=== PATIENT | female | born 1975 | race Caucasian/White ===

== ENCOUNTER 2017-05-20 12:18 | Emergency (ER) | payer OTHER ==
[~2017-05-20] VITALS: Wt 76.0 kg
[2017-05-20] MEDS ORDERED: ACETAMINOPHEN/CODEINE #3 TAB PO ONE (13:00)
--- NOTE | 2017-05-20 13:04 | ERD ---
ER Documentation Chief Complaint Date/Time DATE: 05/20/17 TIME: 13:01 Chief Complaint left leg/calf pain since yesterday HPI 41-year-old female with a history of diabetes complains of left-sided calf pain and swelling that started 2 days ago. Patient describes as a pulling pain, worse when she walks on it, and better with elevation of the leg. She has diffuse Swelling followed by tenderness. She states that she has never had any DVTs before, she is a non-smoker, denies recent immobilization, malignancies. She did have a recent car ride that was long, she returned from [place] 2 weeks ago. Patient also reports that she received a double shot 2 months ago, IUD removal was done at that time. She does not have any chest pain, shortness of breath, dizziness or syncope. Denies fevers or chills. Denies trauma to the leg. ROS All systems reviewed and are negative except as per history of present illness. Allergies Allergies: Coded Allergies: No Known Allergy (Unverified , 05/20/17) PMhx/Soc History of Surgery: Yes () Hx Alcohol Use: Yes Hx Substance Use: No Hx Tobacco Use: No Smoking Status: Never smoker Physical Exam Vitals Vital Signs Date Time Temp Pulse Resp B/P Pulse Ox O2 Delivery O2 Flow Rate FiO2 05/20/17 12:26 98.2 60 18 140/78 99 Physical Exam General: Well-developed, well-nourished. The patient appears in no acute distress. HEENT: Head is normocephalic, atraumatic. No scleral icterus. Neck: Supple. Nontender. Lungs: Clear to auscultation. Normal air movement. Heart: Regular rate and rhythm. S1 and S2 are normal. No murmurs, gallops, or rubs. Abdomen: Soft, nontender, nondistended. Bowel sounds are normoactive. Extremities: Swelling and calf tenderness on the left lower extremity. Dorsalis pedis pulses 2+ bilaterally. There is no cyanosis. Extremities are warm to touch. Neurologic: Alert and oriented 3. No focal deficits. Skin: Normal turgor. No rash or lesions. Results 24 hrs Current Medications Medications (Trade) Dose Ordered Sig/Luciana Route PRN Reason Start Time Stop Time Status Last Admin Dose Admin Acetaminophen/ Codeine Phosphate (Tylenol No.3) 1 tab ONCE ONCE PO 05/20/17 13:00 05/20/17 13:01 DC 05/20/17 13:21 Apixaban (Eliquis) 10 mg ONCE ONCE PO 05/20/17 14:00 05/20/17 14:01 Procedures/MDM ED course: Patient was offered pain medication, she stated that Tylenol 3 usually helps her , therefore this was ordered. Labs were ordered and Doppler ultrasound study was ordered for the left lower extremity. Ultrasound occlusive DVT in the left lower extremity, from the common femoral. This was discussed with my attending physician Dr. Rosas who agrees that the patient will further benefit from hospitalization. Medical decision making: This is a 41-year-old female comes in with left-sided leg pain, for 2 days. She states that she did have a long car drive to weeks ago, she also reports having received a double shot, as IUD was removed about 2 months ago. At this time she does have significant calf swelling and calf tenderness, ultrasound shows a complete occlusive DVT from the common femoral down. Patient will further benefit from hospitalization, and anticoagulation therapy. Departure Diagnosis: Primary Impression: Left femoral vein DVT Condition: Stable BLESSING TAMAYO PA-C May 20, 2017 13:04
[2017-05-20 13:54] LABS: INR 0.91; PARTIAL THROMBOPLASTIN TIME 23.3 Sec (25.0-35.0); PROTIME 12.3 Sec (12.2-14.2)
[2017-05-20] MEDS ORDERED: APIXABAN 5 MG TABLET PO ONE (14:00)
[2017-05-20 14:10] LABS: ADD SCAN DIFF NO
--- NOTE | 2017-05-20 14:18 | RADRPT ---
PROCEDURE: US Lower extremity Venous. CLINICAL INDICATION: Left leg edema TECHNIQUE: Multiple sonographic images of the left lower extremity deep venous system was obtained utilizing grayscale, color-flow, compressive sonography and doppler imaging with augmentation. The images were reviewed on a PACS workstation. COMPARISON: None. FINDINGS: There is no compressibility or flow within the left common femoral, femoral, posterior tibial, peron eal and popliteal veins. RPTAT: AA IMPRESSION: Extensive left leg DVT. Report was given to nurse practitioner Gaby by the technologist at the time of examination. .Beau Valencia MD, MD Date Time Electronically viewed and signed by .Beau Valencia MD, on 05/20/2017 14:18 .S/
[2017-05-20 14:21] LABS: BASOPHILS % 0.4 % (0.0-2.0); EOSINOPHILS # 0.1 10^3/ul (0.0-0.5); EOSINOPHILS % 1.1 % (0.0-7.0); HEMATOCRIT 39.8 % (37.0-47.0); HEMOGLOBIN 13.3 g/dl (12.0-16.0); LYMPHOCYTES # 2.1 10^3/ul (0.8-2.9); LYMPHOCYTES % 20.5 % (15.0-51.0); MEAN CORPUSCULAR HEMOGLOBIN 26.8 pg (29.0-33.0); MEAN CORPUSCULAR HGB CONC 33.4 g/dl (32.0-37.0); MEAN CORPUSCULAR VOLUME 80.1 fl (82.0-101.0); MONOCYTE # 0.6 10^3/ul (0.3-0.9); MONOCYTES % 5.4 % (0.0-11.0); NEUTROPHIL # 7.4 10^3/ul (1.6-7.5); NEUTROPHILS % 72.2 % (39.0-77.0); PLATELET COUNT 231 10^3/UL (140-415); RED BLOOD COUNT 4.97 10^6/ul (4.20-5.40); RED CELL DISTRIBUTION WIDTH 12.6 % (11.5-14.5); WHITE BLOOD COUNT 10.3 10^3/ul (4.8-10.8)
[2017-05-20 14:29] LABS: CALCIUM 9.4 mg/dl (8.4-10.2); CREATININE 0.56 mg/dl (0.44-1.00); POTASSIUM 4.3 mmol/L (3.5-5.1)
[2017-05-20] MEDS ORDERED: APIX5TAB PO (15:00)
[2017-05-20] MEDS ORDERED: HYDR-902 PO (15:13)
[2017-05-20] MEDS ORDERED: ACET1TAB40 PO (15:15)
[2017-05-20] MEDS ORDERED: DOCU-144 PO (15:16)
[2017-05-20 15:28] VITALS: BP 124/79; PULSE 61; RESP 16; TEMP 99
== END 2017-05-20 15:30 | disposition home or self-care (01) ==
LOC: FTE 12:18
DX: I82.412 Acute embolism and thrombosis of left femoral vein (principal); E11.9 Type 2 diabetes mellitus without complications
CPT/HCPCS: 80048; 85025; 85610; 85730; 93971; Z7610

== ENCOUNTER 2017-06-02 15:23 | Inpatient (IN) | payer OTHER ==
[~2017-06-02] VITALS: Ht 160 cm; Wt 80.0 kg
[~2017-06-02 15:23] MED LIST: ACET1TAB40 PO; APIX5TAB PO; DOCU-144 PO; HYDR-902 PO
[2017-06-02 17:33] LABS: ADD SCAN DIFF NO
[2017-06-02 17:37] LABS: BASOPHIL # 0.1 10^3/ul (0.0-0.1); BASOPHILS % 0.5 % (0.0-2.0); EOSINOPHILS # 0.1 10^3/ul (0.0-0.5); EOSINOPHILS % 1.4 % (0.0-7.0); HEMATOCRIT 39.6 % (37.0-47.0); HEMOGLOBIN 13.3 g/dl (12.0-16.0); LYMPHOCYTES # 2.9 10^3/ul (0.8-2.9); LYMPHOCYTES % 31.3 % (15.0-51.0); MEAN CORPUSCULAR HGB CONC 33.6 g/dl (32.0-37.0); MEAN CORPUSCULAR VOLUME 80.5 fl (82.0-101.0); MEAN PLATELET VOLUME 10.3 fl (7.4-10.4); MONOCYTE # 0.5 10^3/ul (0.3-0.9); MONOCYTES % 5.1 % (0.0-11.0); NEUTROPHIL # 5.7 10^3/ul (1.6-7.5); NEUTROPHILS % 61.5 % (39.0-77.0); PLATELET COUNT 408 10^3/UL (140-415); RED BLOOD COUNT 4.92 10^6/ul (4.20-5.40); WHITE BLOOD COUNT 9.2 10^3/ul (4.8-10.8)
[2017-06-02 17:42] LABS: URINE BLOOD (Dip) POC Trace-intact (NEGATIVE)
[2017-06-02] MEDS ORDERED: HYDROCODONE/APAP (5/325) TAB PO ONE (18:00)
[2017-06-02 18:08] LABS: ALANINE AMINOTRANSFERASE 23 IU/L (13-69); ALBUMIN 3.8 g/dl (3.3-4.9); ALBUMIN/GLOBULIN RATIO 1.05; ALKALINE PHOSPHATASE 78 IU/L (42-121); ANION GAP 22 (8-16); ASPARTATE AMINO TRANSFERASE 17 IU/L (15-46); BLOOD UREA NITROGEN 22 mg/dl (7-20); CALCIUM 9.1 mg/dl (8.4-10.2); CARBON DIOXIDE 20 mmol/L (21-31); CHLORIDE 99 mmol/L (97-110); CREATININE 0.74 mg/dl (0.44-1.00); GLUCOSE 329 mg/dl (70-220); POTASSIUM 4.2 mmol/L (3.5-5.1); SODIUM 137 mmol/L (135-144); TOTAL PROTEIN 7.4 g/dl (6.1-8.1)
[2017-06-02 18:23] LABS: TROPONIN-I < 0.012 ng/ml (0.00-0.12)
[2017-06-02 18:30] LABS: INR 1.16; PARTIAL THROMBOPLASTIN TIME 28.2 Sec (25.0-35.0); PROTIME 14.9 Sec (12.2-14.2); PT RATIO 1.2
[2017-06-02] MEDS ORDERED: SOD CHLORIDE 0.9% 1,000 ML IV ONE (18:30)
[2017-06-02] MEDS ORDERED: IOHEXOL 100 ML ONE (18:51)
[2017-06-02] MEDS ORDERED: SOD CHLORIDE 0.9% 100 ML ONE (18:51)
[2017-06-02] MEDS ORDERED: IOHEXOL 350MG/ML 50 ML BTL ONE (18:51)
[2017-06-02 19:27] LABS: MODE ROOM AIR; MetHgb Venous 1.4 %; Sample Type Blood venous; Venous COHb 0.3 %; Venous Fraction OxyHgb 36.7 %
--- NOTE | 2017-06-02 20:28 | RADRPT ---
PROCEDURE: CT angiogram chest. CLINICAL INDICATION: Shortness of breath. TECHNIQUE: CT angiogram of the chest was performed utilizing axial images with reconstructions in sagittal and coronal planes following the intravenous administration of 100 cc Omnipaque 350 contras t. The administered radiation dose is CTDI 14 mGy, DLP 502 mGy-cm. COMPARISON: No pertinent prior examinations are submitted for comparison. FINDINGS: Pulmonary angiogram: The pulmonary arteries are adequately opacified to the level of the segmental pulmonary artery branches. There is minimal respiratory motion artifact. All there is a small fill ing defects within the left distal mainstem pulmonary artery extending into the left lower lobe pulm onary artery branches. No other definite pulmonary filling defects are seen. Aortogram: There is no evidence of aortic dissection or aneurysm. Major branches of the aorta are patent. Chest: The lungs are clear. No pleural or pericardial effusions are seen. The tracheobronchial tree is un remarkable. The heart is normal in size. No pericardial effusion is seen. There is no evidence of mediastinal or hilar adenopathy. Visualized Upper abdomen: Unremarkable. Osseous structures: Unremarkable. IMPRESSION: Positive for small left lower lobe pulmonary emboli. RPTAT: HIKT .Mando Montilla MD, MD Date Time Electronically viewed and signed by .Mando Montilla MD, on 06/02/2017 20:28 .T/
[2017-06-02] MEDS ORDERED: INSULIN ASPART [NOVOLOG] 3 ML PEN SC ONE (20:30)
--- NOTE | 2017-06-02 20:50 | ERD ---
ER Documentation Chief Complaint Date/Time DATE: 06/02/17 TIME: 20:40 Chief Complaint LEFT LEG PAIN AND SOB. ON ELEQUIS HPI Patient is a 41-year-old female with a history of left lower extremity DVT and new onset diabetes who presents the emergency department for concerns of ongoing left leg pain and shortness of breath. Patient is currently taking Eliquis. Patient was diagnosed with a Extensive left leg DVT on 03-22-17. Patient states that she has been having ongoing left leg pain since that time. Patient also states today she developed chest pain around 11 AM. Patient states the pain is localized to her left chest. She describes the pain to be pressure-like. Patient denies any radiation of the pain. Patient reports shortness of breath at rest. Patient does report tactile fevers however she denies any diaphoresis, nausea, vomiting or loss consciousness. She did recently travel to [place] by car. Patient denies any unilateral leg swelling, current OCPs, trauma to her leg. Patient states she last received a Depo- Provera shot to months ago. ROS All systems reviewed and are negative except as per history of present illness. Medications Home Meds Active Scripts Docusate Sodium* (Colace*) 100 Mg Capsule, 100 MG PO TID, #30 CAP Prov:PETAR BOWEN MD 05/20/17 Acetaminophen with Codeine (Acetaminophen-Cod #3 Tablet) 1 Each Tablet, 1 TAB PO Q6H Y for PAIN, #7 TAB Prov:PETAR BOWEN MD 05/20/17 Hydrocodone/Acetaminophen ([place] 10-325 Tablet) 1 Each Tablet, 1 TAB PO Q6H Y for PAIN, #7 TAB Prov:PETAR BOWEN MD 05/20/17 Apixaban* (Eliquis*) 5 Mg Tablet, 10 MG PO BID, #14 TAB Prov:PETAR BOWEN MD 05/20/17 Allergies Allergies: Coded Allergies: No Known Allergy (Unverified , 05/20/17) PMhx/Soc Medical and Surgical Hx: pt denies Medical Hx, pt denies Surgical Hx History of Surgery: Yes () Hx Alcohol Use: Yes Hx Substance Use: No Hx Tobacco Use: No FmHx Family History: No diabetes Physical Exam Vitals Vital Signs Date Time Temp Pulse Resp B/P Pulse Ox O2 Delivery O2 Flow Rate FiO2 06/02/17 15:28 99.4 98 20 131/83 100 Physical Exam GENERAL: Well-developed, well-nourished female. Appears in no acute distress. Speaking in full sentences HEAD: Normocephalic, atraumatic. EYES: Pupils are equally reactive bilaterally. EOMs grossly intact. No conjunctival erythema. ENT: Moist mucous membranes. No uvula deviation. No kissing tonsils. NECK: Supple. No meningismus. Normal range of motion of the neck. LUNG: Clear to auscultation bilaterally. No rhonchi, wheezing, rales or coarse breath sounds. HEART: Regular rate and rhythm. No murmurs, rubs or gallops. ABDOMEN: No scars, ecchymosis or rashes noted. Soft, nontender, and nondistended. Positive bowel sounds in all four quadrants. No rebound tenderness , no guarding. (-) McBurney's point tenderness. No CVA tenderness. BACK: No midline tenderness. EXTREMITIES: Equal pulses bilaterally. No peripheral clubbing, cyanosis or edema. No unilateral leg swelling. NEUROLOGIC: Alert and oriented. Moving all four extremities without any difficulty. Normal speech. Steady gait. SKIN: Normal color. Warm and dry. No rashes or lesions. LEFT LE: No deformity, erythema, ecchymosis or swelling. Skin intact. Normal range of motion of the knee and ankle. Tender to palpation of the calf. Sensation intact to light touch. Neurovascularly intact. (Able to plantarflex, dorsiflex, meg foot, invert foot, raise big toe.) 2+ DP and DT pulses. Result Diagram: 06/02/17 1730 06/02/17 1730 Results 24 hrs Laboratory Tests Test 06/02/17 17:30 06/02/17 17:47 06/02/17 18:18 06/02/17 20:32 White Blood Count 9.210^3/ul Red Blood Count 4.9210^6/ul Hemoglobin 13.3g/dl Hematocrit 39.6% Mean Corpuscular Volume 80.5fl Mean Corpuscular Hemoglobin 27.0pg Mean Corpuscular Hemoglobin Concent 33.6g/dl Red Cell Distribution Width 13.0% Platelet Count 28580^3/UL Mean Platelet Volume 10.3fl Neutrophils % 61.5% Lymphocytes % 31.3% Monocytes % 5.1% Eosinophils % 1.4% Basophils % 0.5% Nucleated Red Blood Cells % 0.0/100WBC Neutrophils # 5.710^3/ul Lymphocytes # 2.910^3/ul Monocytes # 0.510^3/ul Eosinophils # 0.110^3/ul Basophils # 0.110^3/ul Nucleated Red Blood Cells # 0.010^3/ul Prothrombin Time 14.9Sec Prothrombin Time Ratio 1.2 INR International Normalized Ratio 1.16 Activated Partial Thromboplast Time 28.2Sec Sodium Level 137mmol/L Potassium Level 4.2mmol/L Chloride Level 99mmol/L Carbon Dioxide Level 20mmol/L Anion Gap 22 Blood Urea Nitrogen 22mg/dl Creatinine 0.74mg/dl Glucose Level 329mg/dl Calcium Level 9.1mg/dl Total Bilirubin 0.0mg/dl Direct Bilirubin 0.00mg/dl Indirect Bilirubin 0.0mg/dl Aspartate Amino Transf (AST/SGOT) 17IU/L Alanine Aminotransferase (ALT/SGPT) 23IU/L Alkaline Phosphatase 78IU/L Troponin I < 0.012ng/ml Total Protein 7.4g/dl Albumin 3.8g/dl Globulin 3.60g/dl Albumin/Globulin Ratio 1.05 Bedside Urine pH (LAB) 5.0 Bedside Urine Protein (LAB) Negative Bedside Urine Glucose (UA) 0.50% Bedside Urine Ketones (LAB) Negative Bedside Urine Blood Trace-intact Bedside Urine Nitrite (LAB) Negative Bedside Urine Leukocyte Esterase (L Negative Blood Gas Specimen Source Blood venous Arterial Blood Date Drawn 06/02/2017 7:10:58 PM Arterial Blood Gas Puncture Site VENOUS LINE Gómez Test N/A Venous Blood pH 7.380 Venous Blood pCO2 (Temp Corrected) 37.0mmHG Venous Blood pO2 (Temp Corrected) 22.1mmHG Venous Blood HCO3 21.4mmol/L Venous Blood Oxygen Saturation 37.3mmHG Venous Blood Base Excess -3.2mmol/L Venous Blood Total Hemoglobin 14.0g/dl Venous Blood Oxyhemoglobin 36.7% Venous Blood Methemoglobin 1.4% Carboxyhemoglobin 0.3% Blood Gas Temperature 37.0C Blood Gas Modality ROOM AIR FiO2 21.0% Blood Gas Notified Whom UP Blood Gas Notified Time 06/02/2017 7:26:53 PM Bedside Glucose 285mg/dL Current Medications Medications (Trade) Dose Ordered Sig/Luciana Route PRN Reason Start Time Stop Time Status Last Admin Dose Admin Acetaminophen/ Hydrocodone Bitart 1 tab 1 tab ONCE ONCE PO 06/02/17 18:00 06/02/17 18:01 DC 06/02/17 17:47 Sodium Chloride (NS) 1,000 ml @ 1,000 mls/hr Q1H ONCE IV 06/02/17 18:30 06/02/17 19:29 DC 06/02/17 20:01 IV Flush 10 ml 10 ml STK-MED ONCE .ROUTE 06/02/17 18:51 06/02/17 18:52 DC 06/02/17 18:51 Sodium Chloride 100 ml @ ud STK-MED ONCE .ROUTE 06/02/17 18:51 06/02/17 18:52 DC 06/02/17 18:51 Iohexol (Omnipaque) 100 ml @ ud STK-MED ONCE .ROUTE 06/02/17 18:51 06/02/17 18:52 DC 06/02/17 18:51 Iohexol (Omnipaque 350mg/ ml) 50 ml STK-MED ONCE .ROUTE 06/02/17 18:51 06/02/17 18:52 DC 06/02/17 18:51 Insulin Aspart (Novolog Insulin Pen) 4 unit ONCE ONCE SC 06/02/17 20:30 06/02/17 20:31 DC 06/02/17 20:51 Ondansetron HCl (Zofran Inj) 4 mg ER BRIDGE PRN IV NAUSEA AND/OR VOMITING 06/02/17 22:00 06/03/17 21:59 Acetaminophen (Tylenol Tab) 650 mg ER BRIDGE PRN PO MILD PAIN/FEVER 06/02/17 22:00 06/03/17 21:59 Enoxaparin Sodium (Lovenox) 80 mg ONCE SC 06/02/17 22:00 06/02/17 22:56 Enoxaparin Sodium (Lovenox) 80 mg Q12 SC 06/03/17 09:00 UNV IV Flush (NS 3 ml) 3 ml PER PROTOCOL IV 06/02/17 23:00 UNV Ondansetron HCl (Zofran Inj) 4 mg Q6H PRN IV NAUSEA AND/OR VOMITING 06/02/17 23:00 UNV Acetaminophen (Tylenol Tab) 650 mg Q6H PRN PO PAIN LEVEL 1-3 OR FEVER 06/02/17 23:00 UNV Acetaminophen/ Hydrocodone Bitart ([place] (5/325)) 1 tab Q6H PRN PO PAIN LEVEL 4-6 06/02/17 23:00 UNV Acetaminophen/ Hydrocodone Bitart ([place] (5/325)) 2 tab Q6H PRN PO PAIN LEVEL 7-10 06/02/17 23:00 UNV Docusate Sodium (Colace) 100 mg Q12H PRN PO CONSTIPATION 06/02/17 23:00 UNV Magnesium Hydroxide (Milk Of Mag) 30 ml DAILY PRN PO CONSTIPATION 06/02/17 23:00 UNV Bisacodyl (Dulcolax Supp) 10 mg DAILY PRN [place] CONSTIPATION 06/02/17 23:00 UNV Pantoprazole (Protonix Tab) 40 mg DAILY@06 PO 06/03/17 06:00 UNV Insulin Glargine (Lantus) 12 unit DAILY@20 SC 06/02/17 23:00 UNV Miscellaneous Information (* Miscellaneous Pharmacy Order) Discontinue current oral sulfonylur... ONCE ONCE XX 06/02/17 23:00 06/02/17 23:01 UNV Diagnostic Test (Pha) (Accu-Chek) 1 ea 02 XX 06/03/17 02:00 UNV Miscellaneous Information (* Miscellaneous Pharmacy Order) HYPOGLYCEMIA PROTOCOL w... ONCE ONCE XX 06/02/17 23:00 06/02/17 23:01 UNV Insulin Aspart (Novolog Insulin Pen) NOVOLOG *MILD* ALGORITHM WITH MEALS BEDTIME SC 06/03/17 08:00 UNV Miscellaneous Information (* Miscellaneous Pharmacy Order) Discontinue all previ... ONCE ONCE XX 06/02/17 23:00 06/02/17 23:01 UNV Insulin Aspart 4 unit 4 unit WITH MEALS SC 06/03/17 08:00 UNV Sodium Chloride (NS) 1,000 ml @ 100 mls/hr Q10H IV 06/02/17 23:00 UNV Procedures/MDM ED COURSE: The patient was stable throughout ED course. I kept the patient and/or family informed of laboratory and diagnostic imaging results throughout the ED course. EKG: Read by Dr. Lares, attending physician. EKG shows normal sinus rhythm at a rate of [address] elevations or T wave changes were noted. DIAGNOSTIC IMAGING: Read by radiologist. DIAGNOSTIC IMAGING REPORT Patient: DOC VILLALOBOS : 1975 Age: 41 Sex: F [id number] DOS: 06/02/17 1706 Ordering MD: AMPARO JACOBS PA-C Location: [facility] Room/Bed: PROCEDURE: CT angiogram chest. CLINICAL INDICATION: Shortness of breath. TECHNIQUE: CT angiogram of the chest was performed utilizing axial images with reconstructions in sagittal and coronal planes following the intravenous administration of 100 cc Omnipaque 350 contrast. The administered radiation dose is CTDI 14 mGy, DLP 502 mGy-cm. COMPARISON: No pertinent prior examinations are submitted for comparison. FINDINGS: Pulmonary angiogram: The pulmonary arteries are adequately opacified to the level of the segmental pulmonary artery branches. There is minimal respiratory motion artifact. All there is a small filling defects within the left distal mainstem pulmonary artery extending into the left lower lobe pulmonary artery branches. No other definite pulmonary filling defects are seen. Aortogram: There is no evidence of aortic dissection or aneurysm. Major branches of the aorta are patent. Chest: The lungs are clear. No pleural or pericardial effusions are seen. The tracheobronchial tree is unremarkable. The heart is normal in size. No pericardial effusion is seen. There is no evidence of mediastinal or hilar adenopathy. Visualized Upper abdomen: Unremarkable. Osseous structures: Unremarkable. IMPRESSION: Positive for small left lower lobe pulmonary emboli. RPTAT: HIKT .Mando Montilla MD, Date Time Electronically viewed and signed by .Mando Montilla MD, MD on 06/02/2017 20:28 .T/ CC: AMPARO JACOBS PA-C PROCEDURES: None. MEDICATIONS GIVEN: [place], IV fluids, NovoLog 4 units subcutaneous Patient tolerated medication well with no adverse reactions. MEDICAL DECISION MAKING: Patient is a 41-year-old female currently on Eliquis for left lower extremity DVT and new onset diabetes (currently on Metformin, started 3 days ago) who presents to the ED with concerns of ongoing left lower extremity pain, chest pain and shortness of breath. Vital signs were reviewed. Patient is afebrile. Patient was not hypoxic. Patient's blood glucose level was noted to be elevated at 329. Patient's pH was noted to be 7.38. Patient did not have ketonuria. BUN noted to be 22. EKG was obtained, no acute ST elevations. Troponin was negative. CT PA was obtained which showed small left lower lobe pulmonary embolism. I had an extensive discussion with the patient about the side effects of contrast with taking metformin for her diabetes. Patient was advised by myself as well as radiology staff to discontinue metformin for the next 2-3 days. I discussed the risks with the patient. Patient understands. Patient also given an information sheet. At this time, patient's presentation is most consistent with left lower lobe PE and chronic DVT. I spoke to my supervising physician Dr. Patterson about the patient's finding. Patient will be admitted. I spoke with Dr. Pittman who will admit patient and place orders. Departure Diagnosis: Primary Impression: Pulmonary embolism Pulmonary embolism type: other Chronicity: acute Acute cor pulmonale presence: without acute cor pulmonale Qualified Code: I26.99 - Other acute pulmonary embolism without acute cor pulmonale Additional Impression: DVT (deep venous thrombosis) DVT location: lower extremity Affected thrombotic vein of extremity: unspecified vein of extremity Laterality: left Chronicity: unspecified Qualified Code: I82.402 - Deep vein thrombosis (DVT) of left lower extremity, unspecified chronicity, unspecified vein Condition: AMPARO Rolle PA-C Jun 02, 2017 20:50
[2017-06-02] MEDS ORDERED: ACETAMINOPHEN 325 MG TAB PO PRN ×2 (22:00→23:00)
[2017-06-02] MEDS ORDERED: ENOXAPARIN 80 MG/0.8 ML SYG SC SCH (22:00)
[2017-06-02] MEDS ORDERED: ONDANSETRON 4 MG INJ IV PRN ×2 (22:00→23:00)
--- NOTE | 2017-06-02 22:11 | RADRPT ---
PROCEDURE: Ultrasound of the bilateral lower extremity venous system. CLINICAL INDICATION: Bilateral leg pain and swelling, deep venous thrombosis TECHNIQUE: Bautista scale with and without compression, color doppler, spectral doppler of the venous system of the bilateral lower extremities was performed. Venous augmentation maneuvers were utilized . COMPARISON: 05/20/2017 FINDINGS: RIGHT: Common femoral vein: Patent. Femoral vein: Patent. Popliteal vein: Patent. Calf veins: Patent. No soft tissue abnormalities are identified. LEFT: Common femoral vein: Patent, prior thrombus gone Femoral vein: Thrombus is present throughout, unchanged. Popliteal vein: Minimal improvement in previously seen thrombus. Calf veins: Posterior tibial vein thrombus again noted. No soft tissue abnormalities are identified. IMPRESSION: No evidence of right lower extremity deep venous thrombosis. Resolution of previously seen left common femoral vein deep venous thrombus. Unchanged appearance of left femoral and popliteal vein deep venous thrombus and posterior tibial ve in thrombus. RPTAT: AADD .Stu Quesada MD, MD Date Time Electronically viewed and signed by .Stu Quesada MD, on 06/02/2017 22:10 .B/
[2017-06-02] MEDS ORDERED: NACL 0.9% 3 ML SYG IV SCH (23:00)
[2017-06-02] MEDS ORDERED: BISACODYL 10 MG SUPP PR PRN (23:00)
[2017-06-02] MEDS ORDERED: HYDROCODONE/APAP (5/325) TAB PO PRN (23:00)
[2017-06-02] MEDS ORDERED: DOCUSATE SODIUM 100 MG CAP PO PRN (23:00)
[2017-06-02] MEDS ORDERED: MAGNESIUM HYDROXIDE 30ML CUP PO PRN (23:00)
[2017-06-02] MEDS ORDERED: DEXTROSE 50% 50 ML SYRINGE IV PRN ×2 (23:45)
[2017-06-02] MEDS: SOD CHLORIDE 0.9% 1,000 ML IV SCH (23:45)
[2017-06-02] MEDS ORDERED: GLUCOSE GEL 15 GRAM TUBE PO PRN ×2 (23:45)
[2017-06-02] MEDS ORDERED: GLUCOSE GEL 15 GRAM TUBE BUCCAL PRN (23:45)
[2017-06-02] MEDS ORDERED: GLUCAGON 1 MG INJ IM PRN (23:45)
[2017-06-02] MEDS: INSULIN GLARGINE [LANtus] 3 ML PEN SC SCH (23:46)
[2017-06-02] MEDS ORDERED: METF500T4 PO (23:54)
[2017-06-03] VITALS (9 sets, daily range): BP systolic 105–128; BP diastolic 67–83; PULSE 70–91; RESP 16–20; Ht 160 cm; Wt 80.0 kg
[2017-06-03] MEDS: ACCU-CHEK XX SCH (02:00)
[2017-06-03 05:53] LABS: ADD SCAN DIFF NO
[2017-06-03 05:55] LABS: BASOPHIL # 0.1 10^3/ul (0.0-0.1); BASOPHILS % 0.6 % (0.0-2.0); EOSINOPHILS # 0.2 10^3/ul (0.0-0.5); EOSINOPHILS % 1.9 % (0.0-7.0); HEMATOCRIT 36.7 % (37.0-47.0); HEMOGLOBIN 12.3 g/dl (12.0-16.0); LYMPHOCYTES # 2.9 10^3/ul (0.8-2.9); LYMPHOCYTES % 32.2 % (15.0-51.0); MEAN CORPUSCULAR HEMOGLOBIN 26.9 pg (29.0-33.0); MEAN CORPUSCULAR HGB CONC 33.5 g/dl (32.0-37.0); MEAN CORPUSCULAR VOLUME 80.3 fl (82.0-101.0); MEAN PLATELET VOLUME 10.7 fl (7.4-10.4); MONOCYTE # 0.7 10^3/ul (0.3-0.9); MONOCYTES % 7.4 % (0.0-11.0); NEUTROPHIL # 5.1 10^3/ul (1.6-7.5); NEUTROPHILS % 57.7 % (39.0-77.0); PLATELET COUNT 340 10^3/UL (140-415); RED BLOOD COUNT 4.57 10^6/ul (4.20-5.40); RED CELL DISTRIBUTION WIDTH 12.8 % (11.5-14.5); WHITE BLOOD COUNT 8.9 10^3/ul (4.8-10.8)
[2017-06-03 07:02] LABS: ALBUMIN 3.3 g/dl (3.3-4.9); BILIRUBIN,INDIRECT 0.1 mg/dl (0-1.1); BILIRUBIN,TOTAL 0.1 mg/dl (0.2-1.3); CALCIUM 9.1 mg/dl (8.4-10.2); CHOL/HDL RATIO 3.7 RATIO; CREATININE 0.54 mg/dl (0.44-1.00); MAGNESIUM 1.6 mg/dl (1.7-2.5); POTASSIUM 3.7 mmol/L (3.5-5.1); TOTAL PROTEIN 6.6 g/dl (6.1-8.1)
[2017-06-03 07:26] LABS: THYROID STIMULATING HORMONE 1.94 MIU/L (0.465-4.680)
[2017-06-03] MEDS: INSULIN ASPART [NOVOLOG] 3 ML PEN SC SCH ×9 (09:05→21:26)
[2017-06-03] MEDS: PANTOPRAZOLE (EC) 40 MG TAB PO SCH (09:06)
--- NOTE | 2017-06-03 10:39 | HP ---
Date/Time of Note Date/Time of Note DATE: 06/03/17 TIME: 10:24 Assessment/Plan VTE Prophylaxis VTE Prophylaxis Intervention: LMWH (Treatment dose for DVT and pulmonary embolus) Lines/Catheters [facility] Saline Lock Assessment/Plan Assessment/Plan 41-year-old female with: 1. Venous thromboembolism with left lower extremity DVT and small left lower lobe pulmonary embolus, I have sent out laboratory workup for hypercoagulable state but likely patient's risk factors include long drives to [place] and also control. Again based on her history she is being compliant with Eliquis and likely did not fill Eliquis as her symptoms of left lower extremity DVT are much improved and again most likely the left lower lobe pulmonary emboli was already there at the time of diagnosis of the DVT therefore patient will be discharged on Eliquis at the time of discharge. She will need follow-up with pulmonary and or PCP 2. Diabetes mellitus, uncontrolled, inadequate regimen, hemoglobin A1c above range. She has been started on Lantus nightly along with pre-meal insulin on a sliding scale insulin. Diabetic education has been ordered. Prophylaxis: Pepcid for GI prophylaxis, patient already on full anticoagulation for venous thromboembolism Disposition: Diabetic education, anticoagulation, discharge planning in the next 24-48 hours HPI/ROS Admit Date/Time Admit Date/Time Jun 02, 2017 at 21:42 Hx of Present Illness Chief complaint: Left-sided chest discomfort, known left lower extremity DVT History of presenting illness: This is a 41-year-old female with apparently previous diagnosis of diabetes mellitus, recent diagnosis of left lower extremity popliteal femoral DVT almost 10 days ago has been compliant with Eliquis with improvement of her left lower extremity edema and pain, however was having episodes of slight chest discomfort left-sided yesterday and came to the emergency department for follow-up. Given her symptoms on this presentation, the patient had a CT angiogram of the chest that showed a small left subsegmental pulmonary embolus. At first I was told by the ER physician, that the patient was diagnosed with DVT 4 months ago and has been on anticoagulation therefore there was concern for failure of Eliquis but after reviewing her chart and talking to the ER physician nursing home assistant she did confirm that the patient was diagnosed 10 days ago with LLE DVT, her LLE symptoms were improving but she started having some slight chest symptoms. Based on the CTA chest findings most likely the patient did embolized 10 days ago already and became slightly more symptomatic. Therefore there is no failure of Eliquis. Patient currently is on Lovenox while we are finishing up additional workup and likely to be discharged in the next 24-48 hours back on Eliquis. She will need at least 6 months treatment given the finding of pulmonary embolus. Also patient is diabetic and seems that she has had issues with compliance with her medication, Metformin due to loss of insurance prior and inability to follow -up with a physician. However on this presentation her A1c is out of range and I have explained to her that she will need insulin treatment. She also reports diabetic neuropathy and likely diabetic retinopathy. Diabetic education is ordered. ROS Constitutional: no complaints Respiratory: pleuritic pain (Left lower lobe) Cardiovascular: no complaints Gastrointestinal: no complaints Genitourinary: no complaints Musculoskeletal: swelling (Left lower extremity improved) Skin: no complaints Neurologic: other (Diabetic neuropathy) Psychological: no complaints PMH/Family/Social Past Medical History Diabetes mellitus Likely diabetic neuropathy Question of endometriosis Left lower extremity deep venous thromboembolism Past Surgical History Status post C-sections 2 Family History Significant Family History: other (Patient adopted) Social History Alcohol Use: none Smoking Status: Never smoker Drug Use: none Exam/Review of Systems Vital Signs Vitals Vital Signs Date Time Temp Pulse Resp B/P Pulse Ox O2 Delivery O2 Flow Rate FiO2 06/03/17 08:00 71 06/03/17 07:41 98.6 20 125/81 98 Room Air Exam Constitutional: alert, oriented, well developed Psych: no complaints Head: normocephalic Respiratory: clear to auscultation, normal air movement Cardiovascular: nl pulses, regular rate and rhythm Gastrointestinal: non-tender, soft Musculoskeletal: other (Much improved swelling of left lower extremity) Extremities: normal pulses Neurological: INPATIENT CARE MANAGER RN II-XII intact, nl mental status, nl speech, nl strength Labs Result Diagram: 06/03/1752106/03/17521 Medications Medications Home Meds: Eliquis 10 mg p.o. twice daily Metformin 1000 mg p.o. daily with breakfast Current Medications Enoxaparin Sodium (Lovenox) 80 mg Q12 SC ; Start 06/03/17 at 09:00 Ondansetron HCl (Zofran Inj) 4 mg Q6H PRN IV NAUSEA AND/OR VOMITING; Start at 23:00 Acetaminophen (Tylenol Tab) 650 mg Q6H PRN PO PAIN LEVEL 1-3 OR FEVER; Start at 23:00 Acetaminophen/ Hydrocodone Bitart ([place] (5/325)) 1 tab Q6H PRN PO PAIN LEVEL 4 -6; Start 06/02/17 at 23:00 Acetaminophen/ Hydrocodone Bitart ([place] (5/325)) 2 tab Q6H PRN PO PAIN LEVEL 7 -10; Start 06/02/17 at 23:00 Docusate Sodium (Colace) 100 mg Q12H PRN PO CONSTIPATION; Start 06/02/17 at 23: 00 Magnesium Hydroxide (Milk Of Mag) 30 ml DAILY PRN PO CONSTIPATION; Start at 23:00 Bisacodyl (Dulcolax Supp) 10 mg DAILY PRN [place] CONSTIPATION; Start 06/02/17 at 23 :00 Pantoprazole (Protonix Tab) 40 mg DAILY@06 PO Last administered on 06/03/17 09 :06; Admin Dose 40 MG; Start 06/03/17 at 06:00 Insulin Glargine (Lantus) 12 unit DAILY@20 SC Last administered on 06/02/17 23 :46; Admin Dose 12 UNIT; Start 06/02/17 at 23:00 Diagnostic Test (Pha) 1 ea 1 ea 02 XX ; Start 06/03/17 at 02:00 Sodium Chloride (NS) 1,000 ml @ 100 mls/hr Q10H IV Last administered on 23:45; Admin Dose 100 MLS/HR; Start 06/02/17 at 23:00 Miscellaneous Information 1 ea NOTE XX ; Start 06/02/17 at 23:45 Glucose (Glutose) 15 gm Q15M PRN PO DECREASED GLUCOSE; Start 06/02/17 at 23:45 Glucose (Glutose) 22.5 gm Q15M PRN PO DECREASED GLUCOSE; Start 06/02/17 at 23: 45 Dextrose (D50w Syringe) 25 ml Q15M PRN IV DECREASED GLUCOSE; Start 06/02/17 at 23:45 Dextrose (D50w Syringe) 50 ml Q15M PRN IV DECREASED GLUCOSE; Start 06/02/17 at 23:45 Glucagon (Glucagen) 1 mg Q15M PRN IM DECREASED GLUCOSE; Start 06/02/17 at 23:45 Glucose (Glutose) 15 gm Q15M PRN BUCCAL DECREASED GLUCOSE; Start 06/02/17 at 23 :45 Procedures Procedures PROCEDURE: CT angiogram chest. CLINICAL INDICATION: Shortness of breath. TECHNIQUE: CT angiogram of the chest was performed utilizing axial images with reconstructions in sagittal and coronal planes following the intravenous administration of 100 cc Omnipaque 350 contrast. The administered radiation dose is CTDI 14 mGy, DLP 502 mGy-cm. COMPARISON: No pertinent prior examinations are submitted for comparison. FINDINGS: Pulmonary angiogram: The pulmonary arteries are adequately opacified to the level of the segmental pulmonary artery branches. There is minimal respiratory motion artifact. All there is a small filling defects within the left distal mainstem pulmonary artery extending into the left lower lobe pulmonary artery branches. No other definite pulmonary filling defects are seen. Aortogram: There is no evidence of aortic dissection or aneurysm. Major branches of the aorta are patent. Chest: The lungs are clear. No pleural or pericardial effusions are seen. The tracheobronchial tree is unremarkable. The heart is normal in size. No pericardial effusion is seen. There is no evidence of mediastinal or hilar adenopathy. Visualized Upper abdomen: Unremarkable. Osseous structures: Unremarkable. IMPRESSION: Positive for small left lower lobe pulmonary emboli. PROCEDURE: Ultrasound of the bilateral lower extremity venous system. CLINICAL INDICATION: Bilateral leg pain and swelling, deep venous thrombosis TECHNIQUE: Bautista scale with and without compression, color doppler, spectral doppler of the venous system of the bilateral lower extremities was performed. Venous augmentation maneuvers were utilized. COMPARISON: 05/20/2017 FINDINGS: RIGHT: Common femoral vein: Patent. Femoral vein: Patent. Popliteal vein: Patent. Calf veins: Patent. No soft tissue abnormalities are identified. LEFT: Common femoral vein: Patent, prior thrombus gone Femoral vein: Thrombus is present throughout, unchanged. Popliteal vein: Minimal improvement in previously seen thrombus. Calf veins: Posterior tibial vein thrombus again noted. No soft tissue abnormalities are identified. IMPRESSION: No evidence of right lower extremity deep venous thrombosis. Resolution of previously seen left common femoral vein deep venous thrombus. Unchanged appearance of left femoral and popliteal vein deep venous thrombus and posterior tibial vein thrombus. RPTAT: JUSTIN FRIAS Jun 03, 2017 10:35
--- NOTE | 2017-06-03 12:20 | RADRPT ---
Echocardiogram Report Patient Name: DOC VILLALOBOS Gender: Female Date: 1975 Study Date: 03-Jun-2017 Prosthodontist/Owner: India Hamilton [facility] Location: [facility] Ref. Physician: DERIK MCKEE Quality: Good Procedures: Transthoracic echocardiogram with complete 2D, M-Mode, and doppler examination. Indications: Pulmonary embolism. 2D/M Mode Doppler Measurement Value Normal Ranges Measurement Value Normal Ranges LVIDd 2D 4.3 3.5 - 5.6 cm AV Peak Sandip 1.3 m/sec LVIDs 2D 2.1 2.1 - 4.1 cm AV Peak PG 6.3 mmHg LVPWd 2D 0.9 0.6 - 1.1 cm LVOT Peak Sandip 1.0 m/sec IVSd 2D 1.0 0.6 - 1.1 cm LVOT Peak PG 3.9 mmHg AoR Diam 2D 2.7 2.0 - 3.7 cm MV E Peak Sandip 0.9 m/sec EDV 2D 82.7 cm3 MV A Peak Sandip 0.6 m/sec ESV 2D 9.2 cm3 MV E/A 1.5 LA Dimen 2D 2.3 2.3 - 4.0 cm MV Decel Time 162 msec MV Decel Hawkins 6 MV E/A 1.5 TR Peak Sandip 2.3 m/sec TR Peak PG 21.4 mmHg RVSP 24.0 mmHg Findings Left Ventricle: Normal left ventricular systolic function. Normal left ventricular cavity size. Normal left ventricular wall thickness. Ejection fraction is visually estimated at 60 %. Tissue Doppler/Mitral Doppler indices are within normal limits. Right Ventricle: Normal right ventricular size. Normal right ventricular systolic function. Left Atrium: The left atrium is normal in size. Right Atrium: The right atrium is normal in size. Mitral Valve: Mitral valve leaflets appear mildly thickened. Mild mitral annular calcification. Trace mitral regurgitation. Aortic Valve: Normal appearance of the aortic valve. No significant aortic stenosis or insufficiency. Tricuspid Valve: Normal appearance of the tricuspid valve. Estimated peak PA systolic pressure 24 mmHg. There is trace tricuspid regurgitation. Pulmonic Valve: Normal pulmonic valve appearance. Pericardium: Normal pericardium with no significant pericardial effusion. Aorta: Normal aortic root. IVC: Normal size and normal respiratory collapse consistent with normal right atrial pressure. Conclusions 1.Normal left ventricular systolic function. Normal left ventricular cavity size. Normal left ventricular wall thickness. Ejection fraction is visually estimated at 60 %. Tissue Doppler/Mitral Doppler indices are within normal limits. 2.Normal right ventricular size. Normal right ventricular systolic function. 3.The left atrium is normal in size. 4.The right atrium is normal in size. 5.No significant valvular stenosis or regurgitation seen. 6.Normal pericardium with no significant pericardial effusion. Electronically Signed By: James Jolley 03-Jun-2017 12:19:24 -0700 Patient Name: DOC VILLALOBOS Study Date: 03-Jun-2017 [id number]
[2017-06-03] MEDS: ENOXAPARIN 80 MG/0.8 ML SYG SC SCH ×2 (12:31→21:25)
[2017-06-03] MEDS: HYDROCODONE/APAP (5/325) TAB PO PRN ×2 (12:35→19:14)
[2017-06-03] MEDS: SOD CHLORIDE 0.9% 1,000 ML IV SCH ×2 (17:15→20:58)
[2017-06-03] MEDS: INSULIN GLARGINE [LANtus] 3 ML PEN SC SCH (21:25)
[2017-06-04] VITALS (12 sets, daily range): BP systolic 100–131; BP diastolic 66–81; PULSE 75–101; RESP 16–19
[2017-06-04] MEDS ORDERED: INSULIN GLARGINE [LANtus] 3 ML PEN SC ONE
[2017-06-04] MEDS ORDERED: INSULIN ASPART [NOVOLOG] 3 ML PEN SC ONE
[2017-06-04] MEDS: ACCU-CHEK XX SCH (02:30)
[2017-06-04] MEDS: SOD CHLORIDE 0.9% 1,000 ML IV SCH (03:00)
[2017-06-04] MEDS: PANTOPRAZOLE (EC) 40 MG TAB PO SCH (06:10)
[2017-06-04] MEDS: INSULIN ASPART [NOVOLOG] 3 ML PEN SC SCH ×7 (08:22→22:09)
[2017-06-04] MEDS: ENOXAPARIN 80 MG/0.8 ML SYG SC SCH ×2 (08:23→22:09)
[2017-06-04 08:38] LABS: MAGNESIUM 1.6 mg/dl (1.7-2.5); PHOSPHORUS 4.2 mg/dl (2.5-4.9)
[2017-06-04 08:39] LABS: CALCIUM 8.5 mg/dl (8.4-10.2); CREATININE 0.55 mg/dl (0.44-1.00); POTASSIUM 3.8 mmol/L (3.5-5.1)
[2017-06-04] MEDS ORDERED: POTASSIUM CHLORIDE (SR) 20 MEQ TAB PO STA (13:02)
[2017-06-04] MEDS ORDERED: MAGNESIUM SULFATE 2 GM/50 ML 50 ML IVPB ONE (13:30)
--- NOTE | 2017-06-04 13:58 | PN ---
Date/Time of Note Date/Time of Note DATE: 06/04/17 TIME: 13:55 Assessment/Plan VTE Prophylaxis VTE Prophylaxis Intervention: LMWH (treatment dose ) Lines/Catheters IV [facility]from [facility]): Peripheral IV Assessment/Plan Assessment/Plan 41-year-old female with: 1. Venous thromboembolism with left lower extremity DVT and small left lower lobe pulmonary embolus, I have sent out laboratory workup for hypercoagulable state but likely patient's risk factors include long drives to [place] and also control. Again based on her history she is being compliant with Eliquis and likely did not fill Eliquis as her symptoms of left lower extremity DVT are much improved and again most likely the left lower lobe pulmonary emboli was already there at the time of diagnosis of the DVT therefore patient will be discharged on Eliquis at the time of discharge. She will need follow-up with Hematology or Pulmonary and PCP 2. Diabetes mellitus, uncontrolled, inadequate regimen, hemoglobin A1c above range. Continue insulin regimen for now Diabetic education pending. Prophylaxis: Pepcid for GI prophylaxis, patient already on full anticoagulation for venous thromboembolism Disposition: Diabetic education, anticoagulation, discharge planning in the next 24 hours Subjective 24 Hr Interval Summary Free Text/Dictation Patient doing well today, no episodes of chest pain, she is on room air and stable. No left lower extremity edema noted on exam actually has been resolved since admission Blood sugar improved Diabetic education pending Exam/Review of Systems Vital Signs Vitals Vital Signs Date Time Temp Pulse Resp B/P Pulse Ox O2 Delivery O2 Flow Rate FiO2 06/04/17 12:47 88 06/04/17 12:03 97.6 18 119/81 98 06/03/17 18:12 Room Air Intake and Output 06/03/17 06/03/17 06/04/17 15:00 23:00 07:00 Intake Total 800 ml Balance 800 ml Exam Constitutional: alert, oriented, well developed Respiratory: clear to auscultation, normal air movement Cardiovascular: nl pulses, regular rate and rhythm Gastrointestinal: non-tender, soft Musculoskeletal: nl extremities to inspection, other (No edema clubbing or cyanosis even left lower extremity looks stable) Neurological: CORPORATE GENERAL MANAGER II-XII intact, nl mental status, nl speech, nl strength Results Result Diagram: 06/03/17 0522 06/04/17 0650 Results 24 hrs Laboratory Tests Test 06/03/17 17:10 06/03/17 21:00 06/03/17 23:41 06/04/17 02:58 Bedside Glucose 316 H 324 H 226 H 268 H Test 06/04/17 06:50 06/04/17 08:11 06/04/17 11:58 06/04/17 12:19 Sodium Level 137 Potassium Level 3.8 Chloride Level 103 Carbon Dioxide Level 22 Anion Gap 16 Blood Urea Nitrogen 14 Creatinine 0.55 Glucose Level 299 H Calcium Level 8.5 Phosphorus Level 4.2 Magnesium Level 1.6 L Bedside Glucose 266 H 174 Lab Scanned Report REFERENCE LAB Medications Medications Current Medications Enoxaparin Sodium (Lovenox) 80 mg Q12 SC Last administered on 06/04/17 08:23; Admin Dose 80 MG; Start 06/03/17 at 09:00 Ondansetron HCl (Zofran Inj) 4 mg Q6H PRN IV NAUSEA AND/OR VOMITING; Start at 23:00 Acetaminophen (Tylenol Tab) 650 mg Q6H PRN PO PAIN LEVEL 1-3 OR FEVER; Start at 23:00 Acetaminophen/ Hydrocodone Bitart ([place] (5/325)) 1 tab Q6H PRN PO PAIN LEVEL 4 -6 Last administered on 06/03/17 19:14; Admin Dose 1 TAB; Start 06/02/17 at 23: 00 Acetaminophen/ Hydrocodone Bitart ([place] (5/325)) 2 tab Q6H PRN PO PAIN LEVEL 7 -10 Last administered on 06/04/17 08:18; Admin Dose 2 TAB; Start 06/02/17 at 23 :00 Docusate Sodium (Colace) 100 mg Q12H PRN PO CONSTIPATION; Start 06/02/17 at 23: 00 Magnesium Hydroxide (Milk Of Mag) 30 ml DAILY PRN PO CONSTIPATION; Start at 23:00 Bisacodyl (Dulcolax Supp) 10 mg DAILY PRN [place] CONSTIPATION; Start 06/02/17 at 23 :00 Pantoprazole (Protonix Tab) 40 mg DAILY@06 PO Last administered on 06/04/17 06 :10; Admin Dose 40 MG; Start 06/03/17 at 06:00 Diagnostic Test (Pha) 1 ea 1 ea 02 XX Last administered on 06/04/17 02:30; Admin Dose 1 EA; Start 06/03/17 at 02:00 Sodium Chloride (NS) 1,000 ml @ 100 mls/hr Q10H IV Last administered on t 03:00; Admin Dose 100 MLS/HR; Start 06/02/17 at 23:00 Miscellaneous Information 1 ea NOTE XX ; Start 06/02/17 at 23:45 Glucose (Glutose) 15 gm Q15M PRN PO DECREASED GLUCOSE; Start 06/02/17 at 23:45 Glucose (Glutose) 22.5 gm Q15M PRN PO DECREASED GLUCOSE; Start 06/02/17 at 23: 45 Dextrose (D50w Syringe) 25 ml Q15M PRN IV DECREASED GLUCOSE; Start 06/02/17 at 23:45 Dextrose (D50w Syringe) 50 ml Q15M PRN IV DECREASED GLUCOSE; Start 06/02/17 at 23:45 Glucagon (Glucagen) 1 mg Q15M PRN IM DECREASED GLUCOSE; Start 06/02/17 at 23:45 Glucose (Glutose) 15 gm Q15M PRN BUCCAL DECREASED GLUCOSE; Start 06/02/17 at 23 :45 Insulin Glargine 17 unit 17 unit DAILY@20 SC ; Start 06/04/17 at 20:00 Magnesium Sulfate (Magnesium Sulfate 2 Gm/50 ml) 50 ml @ 25 mls/hr ONCE ONCE IVPB ; Start 06/04/17 at 13:30; Stop 06/04/17 at 15:29 JUSTIN MCKEE Jun 04, 2017 13:58
[2017-06-04] MEDS ORDERED: INSULIN GLARGINE [LANtus] 3 ML PEN SC SCH ×2 (20:00)
[2017-06-04] MEDS: HYDROCODONE/APAP (5/325) TAB PO PRN (22:20)
[2017-06-05] VITALS (9 sets, daily range): BP systolic 107–121; BP diastolic 72–79; PULSE 71–88; RESP 15–18
[2017-06-05] MEDS: ACCU-CHEK XX SCH (03:00)
[2017-06-05] MEDS: PANTOPRAZOLE (EC) 40 MG TAB PO SCH (06:04)
[2017-06-05 06:34] LABS: ADD SCAN DIFF NO
[2017-06-05 06:37] LABS: BASOPHIL # 0.1 10^3/ul (0.0-0.1); BASOPHILS % 0.7 % (0.0-2.0); EOSINOPHILS # 0.2 10^3/ul (0.0-0.5); EOSINOPHILS % 2.5 % (0.0-7.0); HEMATOCRIT 38.2 % (37.0-47.0); HEMOGLOBIN 12.8 g/dl (12.0-16.0); LYMPHOCYTES # 2.9 10^3/ul (0.8-2.9); LYMPHOCYTES % 38.7 % (15.0-51.0); MEAN CORPUSCULAR HGB CONC 33.5 g/dl (32.0-37.0); MEAN CORPUSCULAR VOLUME 80.6 fl (82.0-101.0); MEAN PLATELET VOLUME 10.4 fl (7.4-10.4); MONOCYTE # 0.5 10^3/ul (0.3-0.9); MONOCYTES % 6.9 % (0.0-11.0); NEUTROPHIL # 3.8 10^3/ul (1.6-7.5); NEUTROPHILS % 50.9 % (39.0-77.0); PLATELET COUNT 365 10^3/UL (140-415); RED BLOOD COUNT 4.74 10^6/ul (4.20-5.40); RED CELL DISTRIBUTION WIDTH 12.8 % (11.5-14.5); WHITE BLOOD COUNT 7.5 10^3/ul (4.8-10.8)
[2017-06-05 07:09] LABS: CALCIUM 9.4 mg/dl (8.4-10.2); CREATININE 0.53 mg/dl (0.44-1.00); POTASSIUM 3.8 mmol/L (3.5-5.1)
[2017-06-05] MEDS: HYDROCODONE/APAP (5/325) TAB PO PRN (08:18)
[2017-06-05] MEDS: INSULIN ASPART [NOVOLOG] 3 ML PEN SC SCH ×4 (08:32→12:46)
[2017-06-05] MEDS ORDERED: APIXABAN 5 MG TABLET PO SCH (09:00)
--- NOTE | 2017-06-05 11:47 | PN ---
Date/Time of Note Date/Time of Note DATE: 06/05/17 TIME: 11:39 Assessment/Plan VTE Prophylaxis VTE Prophylaxis Intervention: other (Eliquis treatment dose ) Lines/Catheters IV [facility]from [facility] Saline Lock Assessment/Plan Assessment/Plan 41-year-old female with: 1. Venous thromboembolism with left lower extremity DVT and small left lower lobe pulmonary embolus, I have sent out laboratory workup for hypercoagulable state but likely patient's risk factors include long drives to [place] and also control. Again based on her history she is being compliant with Eliquis and likely did not fill Eliquis as her symptoms of left lower extremity DVT are much improved and again most likely the left lower lobe pulmonary emboli was already there at the time of diagnosis of the DVT therefore patient will be discharged on Eliquis today, 10 mg p.o. twice daily 7 days then 5 mg p.o. twice daily for the next 6 months Do not resume control pills, avoid long drives. She will need follow-up with Hematology or Pulmonary and PCP 2. Diabetes mellitus, uncontrolled, inadequate regimen, hemoglobin A1c above range. Appreciate recommendations from a clinical educator, patient will be discharged home on Lantus and Humalog pens for her insulin regimen, she also will be given a prescription for glucometer. Prophylaxis: Pepcid for GI prophylaxis, patient already on full anticoagulation for venous thromboembolism Disposition: Discharge home on insulin regimen and Eliquis, close follow-up as an outpatient with PCP within the next 3-5 days. Subjective 24 Hr Interval Summary Free Text/Dictation Patient remained stable, no further chest pain chest pressure, no edema of the left lower extremity noted, although on all her venous thromboembolism is improving, she has been on Lovenox inpatient Eliquis prior to admission for short duration, she will be discharged on Eliquis will have to reload her with close outpatient follow-up with primary care physician. She also received diabetic education, she will be discharged home today with outpatient diabetic clinic follow-up or endocrinology referral through [facility]. Exam/Review of Systems Vital Signs Vitals Vital Signs Date Time Temp Pulse Resp B/P Pulse Ox O2 Delivery O2 Flow Rate FiO2 06/05/17 08:37 88 06/05/17 07:34 98.0 18 115/77 98 06/03/17 18:12 Room Air Intake and Output 06/04/17 06/04/17 06/05/17 15:00 23:00 07:00 Intake Total 400 ml 850 ml 800 ml Balance 400 ml 850 ml 800 ml Exam Constitutional: alert, oriented, well developed Respiratory: clear to auscultation, normal air movement Cardiovascular: nl pulses, regular rate and rhythm Gastrointestinal: soft Musculoskeletal: nl extremities to inspection, other (No edema, not even on the left lower extremity. No clubbing or cyanosis) Extremities: normal pulses Neurological: ASSOCIATE SALES II-XII intact, nl mental status, nl speech, nl strength Results Result Diagram: 06/05/1715 06/05/17614 Results 24 hrs Laboratory Tests Test 06/04/17 11:58 06/04/17 12:19 06/04/17 17:46 06/04/17 20:59 Lab Scanned Report REFERENCE LAB Bedside Glucose 174 168 198 Test 06/05/17 03:40 06/05/17 06:15 06/05/17 08:10 Bedside Glucose 172 165 White Blood Count 7.5 Red Blood Count 4.74 Hemoglobin 12.8 Hematocrit 38.2 Mean Corpuscular Volume 80.6 L Mean Corpuscular Hemoglobin 27.0 L Mean Corpuscular Hemoglobin Concent 33.5 Red Cell Distribution Width 12.8 Platelet Count 365 Mean Platelet Volume 10.4 Neutrophils % 50.9 Lymphocytes % 38.7 Monocytes % 6.9 Eosinophils % 2.5 Basophils % 0.7 Neutrophils # 3.8 Lymphocytes # 2.9 Monocytes # 0.5 Eosinophils # 0.2 Basophils # 0.1 Nucleated Red Blood Cells # 0.0 Sodium Level 138 Potassium Level 3.8 Chloride Level 99 Carbon Dioxide Level 27 Anion Gap 16 Blood Urea Nitrogen 13 Creatinine 0.53 Glucose Level 165 # Calcium Level 9.4 Medications Medications Current Medications Ondansetron HCl (Zofran Inj) 4 mg Q6H PRN IV NAUSEA AND/OR VOMITING; Start at 23:00 Acetaminophen (Tylenol Tab) 650 mg Q6H PRN PO PAIN LEVEL 1-3 OR FEVER; Start at 23:00 Acetaminophen/ Hydrocodone Bitart ([place] (5/325)) 1 tab Q6H PRN PO PAIN LEVEL 4 -6 Last administered on 06/05/17t 08:18; Admin Dose 1 TAB; Start 06/02/17 at 23: 00 Acetaminophen/ Hydrocodone Bitart ([place] (5/325)) 2 tab Q6H PRN PO PAIN LEVEL 7 -10 Last administered on 06/04/17 08:18; Admin Dose 2 TAB; Start 06/02/17 at 23 :00 Docusate Sodium (Colace) 100 mg Q12H PRN PO CONSTIPATION; Start 06/02/17 at 23: 00 Magnesium Hydroxide (Milk Of Mag) 30 ml DAILY PRN PO CONSTIPATION; Start at 23:00 Bisacodyl (Dulcolax Supp) 10 mg DAILY PRN [place] CONSTIPATION; Start 06/02/17 at 23 :00 Pantoprazole (Protonix Tab) 40 mg DAILY@06 PO Last administered on 06/05/17 06 :04; Admin Dose 40 MG; Start 06/03/17 at 06:00 Diagnostic Test (Pha) (Accu-Chek) 1 ea 02 XX Last administered on 06/05/17 03: 00; Admin Dose 1 EA; Start 06/03/17 at 02:00 Miscellaneous Information 1 ea NOTE XX ; Start 06/02/17 at 23:45 Glucose (Glutose) 15 gm Q15M PRN PO DECREASED GLUCOSE; Start 06/02/17 at 23:45 Glucose (Glutose) 22.5 gm Q15M PRN PO DECREASED GLUCOSE; Start 06/02/17 at 23: 45 Dextrose (D50w Syringe) 25 ml Q15M PRN IV DECREASED GLUCOSE; Start 06/02/17 at 23:45 Dextrose (D50w Syringe) 50 ml Q15M PRN IV DECREASED GLUCOSE; Start 06/02/17 at 23:45 Glucagon (Glucagen) 1 mg Q15M PRN IM DECREASED GLUCOSE; Start 06/02/17 at 23:45 Glucose (Glutose) 15 gm Q15M PRN BUCCAL DECREASED GLUCOSE; Start 06/02/17 at 23 :45 Insulin Glargine (Lantus) 20 unit DAILY@20 SC Last administered on 06/04/17 22 :09; Admin Dose 20 UNIT; Start 06/04/17 at 20:00 Apixaban (Eliquis) 10 mg BID PO Last administered on 06/05/17 09:52; Admin Dose 10 MG; Start 06/05/17 at 09:00 JUSTIN MCKEE Jun 05, 2017 11:47
--- NOTE | 2017-06-05 11:49 | PDOCDIS ---
Discharge Instructions CONDITION Patient Condition: Stable HOME CARE INSTRUCTIONS: Special Diet: Diabetic diet ACTIVITY: Activity Restrictions: Rest between Activity Keep Limb Elevated (LLE when in bed ) FOLLOW UP/APPOINTMENTS Follow-up Plan Follow-up with primary care physician within 3-5 days Referral to endocrinology to [facility] with follow-up within 1-2 weeks Referral to hematology as an outpatient, regarding recent venous thromboembolism , previous control pills JUSTIN MCKEE Jun 05, 2017 11:49
[2017-06-05] MEDS ORDERED: INSU200I SQ (12:02)
[2017-06-05] MEDS ORDERED: LANT3I SC (12:02)
[2017-06-05] MEDS ORDERED: APIX5TAB PO (12:03)
== END 2017-06-05 16:09 | disposition home or self-care (01) | DRG 299 ==
LOC: FTE 15:23 → MS3 21:42 → TEL 06-03 19:21
PROVIDERS: ADMIT Internal Medicine; ATTEND Internal Medicine
DX: I82.412 Acute embolism and thrombosis of left femoral vein (principal); I26.99 Other pulmonary embolism without acute cor pulmonale; I82.442 Acute embolism and thrombosis of left tibial vein; E11.42 Type 2 diabetes mellitus with diabetic polyneuropathy; E11.65 Type 2 diabetes mellitus with hyperglycemia; E11.319 Type 2 diabetes mellitus with unspecified diabetic retinopathy without macular edema; Z79.4 Long term (current) use of insulin; Z79.01 Long term (current) use of anticoagulants; Z79.02 Long term (current) use of antithrombotics/antiplatelets
CPT/HCPCS: 36415; 71275; 80048; 80053; 80061; 81003; 81240; 82803; 82962; 83036; 83735; 83890; 84100; 84439; 84443; 84484; 85025; 85610; 85730; 93005; 93306; 93970; 96372; J1815; J3475; J7030; Q9967

== ENCOUNTER 2017-10-21 12:47 | Day surgery (SDC) | payer OTHER ==
[~2017-10-21] VITALS: Ht 157.5 cm; Wt 81.4 kg
[~2017-10-21 12:47] MED LIST changes: -HYDR-902 PO; +INSU200I SQ; +LANT3I SC
[2017-10-21 15:21] VITALS: Ht 157.5 cm; Wt 81.4 kg
[2017-10-21] MEDS ORDERED: GABA100C14 PO (15:29)
[2017-10-21] MEDS ORDERED: ALPR1TAB2 PO (15:29)
[2017-10-21 16:04] VITALS: BP 112/73; PULSE 74; RESP 15
[2017-10-21] MEDS ORDERED: LIDOCAINE 2% (SDV) 5 ML INJ ONE (16:26)
[2017-10-21] MEDS ORDERED: PROPOFOL 40 ML ONE (16:26)
[2017-10-21 16:53] VITALS: BP 94/55; PULSE 69; RESP 12
--- NOTE | 2017-10-21 16:53 | OPPN ---
Date/Time of Note Date/Time of Note DATE: 10/21/17 TIME: 16:51 Proc Note GI Procedure Date 10/21/17 Indication: other (Change in bowel habits/constipation) Pre-procedure Diagnosis Change in bowel habits/constipation Post-procedure Diagnosis Impression: Normal colonic mucosa to cecum. Moderate-sized internal hemorrhoids. Plan: Follow up as scheduled] High fiber diet Annual hemoccult stool testing [Screening colonoscopy in 10 years] . Procedure Performed: Colonoscopy Surgeon CRYSTAL ALDANA MD See signature line Neon Installer none Anesthesia Type: MAC Anesthesiologist: KARLOS LESLIE MD Tourniquet Time none EBL none Transfusion required none Biopsy 1: None Grafts/Implants none Tubes/Drains none Complication(s) none Disposition: home Procedure Description After informed consent, with the patient/relatives understanding the procedure, its indications and potential risks and complications, including but not limited to: Allergic reaction, bleeding, perforation, infection, and after all pertinent questions were answered to the patient's satisfaction, the patient/ relatives signed the witnessed informed consent. Following this, premedication was administered slowly IV push under careful cardiovascular and respiratory monitoring with pulse OXIMETRY, automatic blood pressure, and equipment monitor phototypesetting. Once the sedative effect was achieved, the patient was placed in the left lateral decubitus position, digital rectal examination was performed. The colonoscope was then introduced and advanced under visual control throughout all segments of the colon including: the rectum, sigmoid, descending colon, splenic flexure, transverse colon, hepatic flexure, ascending colon and finally reaching the cecum which was clearly identified by transillumination, finger indentation and the ileocecal valve. Careful examination of the mucosa of the lower gastrointestinal tract both on insertion as well as withdrawal of the instrument disclosed the following findings: PREPARATION QUALITY: [Adequate], RECTAL EXAM: The anorectal area was visualized examined and digital rectal examination performed with the following findings: No evidence of perirectal disease, no masses. COLONIC MUCOSA: The mucosa of all segments of the colon was carefully examined and showed the following findings: the examined mucosa appears within normal limits. There is no evidence of inflammatory changes, diverticular formation, polyps or neoplasms, vascular malformation, or any other abnormality. Moderate-sized internal hemorrhoids The instrument was then withdrawn, the patient tolerated the procedure well and was transferred out of the Endoscopy Suite awake and in good condition to continue recovery under observation. Copies To: CC: CRYSTAL ALDANA MD, MORDO MD Oct 21, 2017 16:53
== END 2017-10-21 19:43 | disposition home or self-care (01) ==
LOC: GIL 12:47
PROVIDERS: ATTEND Internal Medicine Gastroenterology
DX: R19.4 Change in bowel habit (principal); K64.8 Other hemorrhoids; E11.9 Type 2 diabetes mellitus without complications; E66.9 Obesity, unspecified; Z68.32 Body mass index [BMI] 32.0-32.9, adult
CPT/HCPCS: 45378; 82962; 84703; Z7610